=== PATIENT | male | born 1965 | race Caucasian/White ===

== ENCOUNTER 2023-02-09 16:51 | Emergency (ER) | payer SELFPAY ==
--- NOTE | ~2023-02-09 | XR_ITS ---
EXAMINATION: XR wrist RT min 3V DATE: 02/09/2023 17:14 INDICATION: Right wrist pain. Fall. TECHNIQUE: 4 views of right wrist were obtained. COMPARISON: Right hand radiographs 09/13/2017 FINDINGS: Bone alignment is normal. No fracture. There is mild osteoarthritis of first carpometacarpa l joint. IMPRESSION: 1. Mild osteoarthritis of first carpometacarpal joint. Reviewed, dictated and finalized at location A.
[2023-02-09 17:05] VITALS: BP 118/77; PULSE 66; RESP 16; TEMP 36.4; O2SAT 98
--- NOTE | 2023-02-09 17:10 | ED.UPPEXIN ---
HPI - Extremity Injury (Upper) General Chief Complaint: Extremity Injury, Upper Stated Complaint: Fall; can move wrist Time Seen by Provider: 02/09/23 17:11 Source: patient, RN notes reviewed and old records reviewed Mode of arrival: ambulatory Limitations: no limitations History of Present Illness HPI narrative: 57 year old male presents to [facility] care with complaints of falling off roof today approximately 15 feet, landing onto his feet then rolled caught himself with his right hand with pain now at his wrist.Patient denies any pain to any other joint or to back,denies any LOC. Patient is able to move his right wrist but is painful with movement, Patient has small puncture wound to the son aspect of base of 5th finger with no drainage or any depth.hand. Patient has minimal swelling noted to right wrist area, strong right radial pulse and nail beds of right fingers have brisk capillary refill. Patient has taken Aleve for his discomfort and applied some ice. Patient worked all day prior to coming to clinic, injury at 0730. MD complaint: injury to: right and wrist Onset (ago): hour(s) (30) Handedness: right Place: work Severity scale (1-10): 8 Treatments prior to arrival: cold therapy and NSAIDS Related Data Home Medications Medication Instructions Recorded Confirmed No Home Medications 02/09/23 02/09/23 Allergies Allergy/AdvReac Type Severity Reaction Status Date / Time No Known Allergies Allergy Unverified 02/09/23 17:00 Review of Systems Review of Systems: CONSTITUTIONAL: Denies fever, chills, or sweats. EYES: Denies visual changes, redness, or discharge. ENT: Denies rhinorrhea, congestion, sore throat, or otalgia. CARDIOVASCULAR: Denies chest pain, palpitations, or edema. RESPIRATORY: Denies cough or dyspnea. GASTROINTESTINAL: Denies abdominal pain, nausea, vomiting, or diarrhea. GENITOURINARY: Denies dysuria or hematuria. SKIN: Denies rash or itching.small puncture wound to left son aspect hand near base of 5th finger MUSCULOSKELETAL: Denies back pain,positive for right wrist pain, or myalgia. NEUROLOGIC: Denies headache, numbness, or weakness. PSYCHIATRIC: Denies anxiety or depression. All systems reviewed & are unremarkable except as noted in HPI and below PMFSH Past Medical History Medical History (Updated 02/10/23 @ 13:41 by Janine Dubois NP) Acute right-sided low back pain without sciatica Fracture of radial neck, left, closed GERD (gastroesophageal reflux disease) Surgical History Surgical History (Updated 02/09/23 @ 17:24 by Janine Dubois NP) H/O hernia repair Family History Family History (Updated 06/30/16 @ 10:32 by DOCTOR UNKNOWN) Sibling Family history of diabetes mellitus in first degree relative Diabetes mellitus Mother Family history of primary malignant neoplasm of liver Social History Social History (Updated 02/10/23 @ 13:36 by Janine Dubois NP) Smoking status: Never smoker Alcohol intake: never Substance use type: does not use Living arrangements: with family Gender identity (if verbalized by the patient): Male Comments At time of signature, agree with nursing past medical, surgical, social and family history. There is no relevant family history pertinent to the presenting complaint Exam Narrative: GENERAL: Well-appearing, well-nourished, and in mild acute distress . HEAD: Normocephalic, atraumatic. EYES: PERRLA and EOMI.no nystagmus ENT: Nares clear, no rhinorrhea or epistaxis. Mucous membranes moist.TM's normal with no discharge, throat pink with no swelling NECK: Supple no lymphadenopathy CHEST: Clear to auscultation. No respiratory distress.SAO2 98% HEART: Regular rate and rhythm. No murmur heard. Normal peripheral pulses ABDOMEN: Soft, nontender, nondistended, normal active bowel sounds. EXTREMITIES: Normal range of motion. No edema.Exception noted to pain of right wrist especially with movement, circulation and sensation inta
== END 2023-02-09 17:41 | disposition home or self-care (01) ==
PROVIDERS: Emergency Provider Registered Nurse
DX: S66.911A Strain of unspecified muscle, fascia and tendon at wrist and hand level, right hand, initial encounter (principal); S63.501A Unspecified sprain of right wrist, initial encounter; W13.2XXA Fall from, out of or through roof, initial encounter; K21.9 Gastro-esophageal reflux disease without esophagitis
CPT/HCPCS: 73110; 99203; G0463

== ENCOUNTER 2023-12-29 17:20 | Emergency (ER) | payer SELFPAY ==
--- NOTE | 2023-12-29 17:22 | ED.MALEGU ---
HPI - Male Genitourinary General Chief complaint: Urogenital-Male Stated complaint: Uti Symptoms Time Seen by Provider: 12/29/23 17:21 Source: patient Mode of arrival: ambulatory Limitations: no limitations History of Present Illness HPI Narrative: Patient is a 58-year-old male who presents with 3 days of discoloration to tip of penis. Patient states he was [place] but denies any trauma to penis. States there is a burning sensation at the tip of penis that is constant and not related to urination. Denies any new sexual partners or concern for STDs. Denies any discharge from penis, testicular swelling, testicular pain, fever, chills, nausea, vomiting, diarrhea. Patient has not put anything on penis. Does have history of elevated prostate markers. Had MRI of prostate. Missed follow-up appointment with urologist due to a flat tire. Next appointment is in a month. Related Data Allergies Allergy/AdvReac Type Severity Reaction Status Date / Time No Known Allergies Allergy Unverified 12/29/23 17:26 Review of Systems Review of Systems: All systems reviewed & are unremarkable except as noted in HPI and below Constitutional: Constitutional: Denies chills, Denies fever(s), Denies headache(s), Denies malaise and Denies weakness Eyes: Eyes: Denies change in vision, Denies eye discharge and Denies irritation ENT: Denies otalgia, Denies headache(s), Denies nasal congestion, Denies nasal discharge, Denies sinus pain and Denies sore throat Cardiovascular: Cardiovascular: Denies chest pain, Denies edema, Denies palpitations and Denies dyspnea Respiratory: Respiratory: Denies cough and Denies dyspnea Gastrointestinal: Gastrointestinal: Denies abdominal pain, Denies diarrhea, Denies nausea and Denies vomiting Genitourinary: Genitourinary: Denies hematuria, Reports genital pain, Denies dysuria, Denies flank pain, Denies painful ejaculations, Denies penile discharge, Denies scrotal swelling, Denies testicular pain and Denies urinary urgency Musculoskeletal: Musculoskeletal: Denies back pain and Denies numbness Integumentary/Breasts: Skin/Breast: Denies pruritus and Denies rash Neurologic: Denies headache(s), Denies numbness and Denies weakness Psychiatric: Psychiatric: Reports no additional psychiatric complaints Endocrine: Endocrine: Denies palpitations PMFSH Past Medical History Medical History Acute right-sided low back pain without sciatica Fracture of radial neck, left, closed GERD (gastroesophageal reflux disease) Surgical History Surgical History H/O hernia repair Family History Family History Sibling Family history of diabetes mellitus in first degree relative Diabetes mellitus Mother Family history of primary malignant neoplasm of liver Social History Social History Smoking status: Never smoker Alcohol intake: never Substance use type: does not use Living arrangements: with family Gender identity (if verbalized by the patient): Male Comments At time of signature, agree with nursing past medical, surgical, social and family history. There is no relevant family history pertinent to the presenting complaint. Exam Const: General: cooperative, healthy appearing, comfortable, no acute distress and well nourished Nutritional Appearance: well nourished Orientation/consciousness: patient oriented x3 HENMT: Head: normocephalic and atraumatic Ears: external ears normal Face/Nose/Sinus: Normal external nose present, Normal nares present and normal facial exam Face and sinus: normal facial exam Eyes: General: appearance normal, both eyes and all related structures Pupils: Equal, round and reactive pupils present EOM: EOMs intact bilaterally Neck: Neck: normal visual inspec
[2023-12-29 17:23] VITALS: BP 127/83; PULSE 63; RESP 16; TEMP 36.3; O2SAT 100
== END 2023-12-29 18:01 | disposition home or self-care (01) ==
PROVIDERS: Emergency Provider Nurse Practitioner Family; PCP Student in an Organized Health Care Education/Training Program
DX: N48.1 Balanitis (principal); K21.9 Gastro-esophageal reflux disease without esophagitis
CPT/HCPCS: 81003; 99213; G0463